=== PATIENT | male | born 1955 | race Caucasian/White ===

== ENCOUNTER 2024-10-29 10:01 | Outpatient (CLI) | payer OTHER, SELFPAY ==
--- NOTE | ~2024-10-29 | XR_ITS ---
Right Knee Technique: AP, lateral, and sunrise views were obtained. Clinical History: Pain Findings: No fracture or dislocation is seen. There is severe tricompartmental osteoarthritis. There is [id number] appearance of the medial compartment remodeling of the medial tibial plateau. There i s extensive osteophyte formation throughout the knee.. Soft tissues are unremarkable. No joint effusi on is seen. Impression: Severe tricompartmental osteoarthritis, as detailed above. Reviewed, dictated and finalized at location M. Impression: Severe tricompartmental osteoarthritis, as detailed above.
--- NOTE | ~2024-10-29 | XR_ITS ---
Left Knee Technique: AP, lateral, and sunrise views were obtained. Clinical History: Pain Findings: No fracture or dislocation is seen. There are severe tricompartmental degenerative change w ith narrowing of the medial and lateral compartments. There is extensive osteophyte formation.. Soft tissues are unremarkable. No joint effusion is seen. Impression: Severe tricompartmental osteoarthritis. Reviewed, dictated and finalized at location M. Impression: Severe tricompartmental osteoarthritis.
== END 2024-10-29 10:02 | disposition home or self-care (01) ==
LOC: MICIMG 10:07
PROVIDERS: PCP Nurse Practitioner Family; Visit Provider Nurse Practitioner Family
DX: M17.0 Bilateral primary osteoarthritis of knee (principal)
CPT/HCPCS: 73562